=== PATIENT | male | born 1960 | race Caucasian/White ===

== ENCOUNTER 2017-08-01 12:35 | Emergency (ER) | payer BC ==
[2017-08-01 13:04] VITALS: O2SAT 98
[2017-08-01] MEDS ORDERED: Oxycodone/Acetaminophen 5/325 mg Tab PO STA (13:12)
--- NOTE | 2017-08-01 13:15 | ED PDOC ---
HPI: Back Time Seen by Provider: 08/01/17 12:55 Chief Complaint (Nursing): Back Pain Chief Complaint (Provider): Back Pain History Per: Patient Additional Complaint(s): 56 yo male, PMH of HTN and High Cholesterol, presents to Ed with complaint sof left sided lower back pain since Monday, radiating down RLE. No bowel or bladder dysfunction. Pt took 2 Motrin yesterday with mild relief. Past Medical History Reviewed: Historical Data, Nursing Documentation, Vital Signs Vital Signs: Last Vital Signs Temp 98.6 F 08/01/17 13:02 Pulse 94 H 08/01/17 13:02 Resp 16 08/01/17 13:02 BP 141/84 08/01/17 13:02 Pulse Ox 98 08/01/17 13:02 - Medical History PMH: HTN, Hyperlipidemia - Surgical History Surgical History: No Surg Hx - Family History Family History: States: No Known Family Hx - Living Arrangements Living Arrangements: With Family - Social History Current smoker - smoking cessation education provided: No Alcohol: Social Drugs: Denies - Home Medications Home Medications: Ambulatory Orders Medication Instructions Recorded Atorvastatin [Lipitor] 40 mg PO DAILY #30 tab 07/06/16 Cyclobenzaprine [Cyclobenzaprine 10 mg PO TID #20 tab 08/01/17 HCl] Ibuprofen [Motrin] 600 mg PO Q6 #20 tab 08/01/17 Lidocaine 1 each TP Q12 #12 adh..patch 08/01/17 oxyCODONE/Acetaminophen [Percocet 1 ea PO Q6 PRN #5 tab 08/01/17 5/325 mg Tab] - Allergies Allergies/Adverse Reactions: Allergies Allergy/AdvReac Type Severity Reaction Status Date / Time No Known Allergies Allergy Verified 07/06/16 11:03 Review of Systems ROS Statement: Except As Marked, All Systems Reviewed And Found Negative Musculoskeletal: Positive for: Back Pain Physical Exam - Reviewed Nursing Documentation Reviewed: Yes Vital Signs Reviewed: Yes - Physical Exam Appears: Positive for: Well, Non-toxic, No Acute Distress Head Exam: Positive for: ATRAUMATIC, NORMAL INSPECTION, NORMOCEPHALIC Skin: Positive for: Normal Color, Warm, DRY Eye Exam: Positive for: EOMI, Normal appearance, PERRL ENT: Positive for: Normal ENT Inspection Neck: Positive for: Normal, Painless ROM Cardiovascular/Chest: Positive for: Regular Rate, Rhythm Respiratory: Positive for: CNT, Normal Breath Sounds Gastrointestinal/Abdominal: Positive for: Normal Exam, Bowel Sounds, Soft Back: Positive for: Normal Inspection, Other (Left sided LS paraspinal tenderness) Extremity: Positive for: Normal ROM Neurologic/Psych: Positive for: Alert, Oriented - ECG O2 Sat by Pulse Oximetry: 98 Medical Decision Making Medical Decision Making: LS Spine; NAd, as read by HENNA Medicated with toradol, Flexeril and Percocet. Pt doing well on re-eval, able to ambulate with steady gait. stable for discharge at this time. Disposition - Clinical Impression Clinical Impression: Back pain - Patient ED Disposition Is Patient to be Admitted: No - Disposition Disposition: Routine/Home Disposition Time: 15:02 Condition: STABLE Prescriptions: Cyclobenzaprine [Cyclobenzaprine HCl] 10 mg PO TID #20 tab Ibuprofen [Motrin] 600 mg PO Q6 #20 tab Lidocaine 1 each TP Q12 #12 adh..patch oxyCODONE/Acetaminophen [Percocet 5/325 mg Tab] 1 ea PO Q6 PRN #5 tab PRN Reason: Pain, Severe (8-10) Instructions: Acute Low Back Pain (ED) Forms: [employer] (Spanish)
[2017-08-01] MEDS ORDERED: Oxycodone/Acetaminophen 5/325 mg Tab ONE (13:18)
--- NOTE | 2017-08-01 14:44 | RAD ---
PROCEDURE: Radiographs of the Lumbar Spine. HISTORY: Back Pain. No history of recent/ related trauma provided COMPARISON: No prior. FINDINGS: BONES: Normal alignment. No listhesis. No fracture. DISC SPACES: Preservation of intervertebral disc spaces. Non marginal osteophyte formation identified lower lumbar spine. OTHER FINDINGS: Calcified nonaneurysmal abdominal aorta. IMPRESSION: No significant or acute findings to account for/ related to the clinical presentation. Additional benign and/or incidental findings described above. Please note: No preliminary report/ innterpretation of this examination provided by emergency department personnel.
[2017-08-01 15:03] VITALS: BP 120/78; PULSE 78; RESP 19; TEMP 96.3
== END 2017-08-01 15:03 | disposition home or self-care (01) ==
LOC: H.ER 12:35
DX: M54.5 Low back pain (principal)
CPT/HCPCS: 72114; 96372; 99282; J1885

== ENCOUNTER 2017-12-24 14:01 | Observation (INO) | payer BC ==
[2017-12-24] MEDS ORDERED: Sodium Chloride 0.9% 500 ML IV STA (14:31)
--- NOTE | 2017-12-24 14:35 | ED PDOC ---
HPI: Chest Pain Time Seen by Provider: 12/24/17 14:21 Chief Complaint (Nursing): Chest Pain Chief Complaint (Provider): Chest pain History Per: Patient History/Exam Limitations: no limitations Onset/Duration Of Symptoms: Days Current Symptoms Are (Timing): Still Present Additional Complaint(s): Pt. with chest pain left side. Off and on and now more constant. No dyspnea, weakness, headaches. No nausea, vomit. Dizziness like light-headed mild. No cough. Sees a pattern generator operator Dr. Lopez. PCP Dr. Hendrix. No leg pain, long distance travel, or hormone tx. Past Medical History Reviewed: Nursing Documentation, Vital Signs Vital Signs: Last Vital Signs Temp 98.2 F 12/24/17 14:10 Pulse 96 H 12/24/17 14:10 Resp 20 12/24/17 14:10 BP 129/71 12/24/17 14:10 Pulse Ox 99 12/24/17 14:10 - Medical History PMH: HTN, Hyperlipidemia - Surgical History Surgical History: No Surg Hx - Family History Family History: States: Unknown Family Hx - Social History Current smoker - smoking cessation education provided: No Ex-Smoker (has not smoked in the last 12 months): Yes Alcohol: None Drugs: Denies - Home Medications Home Medications: Ambulatory Orders Medication Instructions Recorded Atorvastatin [Lipitor] 40 mg PO DAILY #30 tab 07/06/16 Cyclobenzaprine [Cyclobenzaprine 10 mg PO TID #20 tab 08/01/17 HCl] Ibuprofen [Motrin] 600 mg PO Q6 #20 tab 08/01/17 Lidocaine 1 each TP Q12 #12 adh..patch 08/01/17 oxyCODONE/Acetaminophen [Percocet 1 ea PO Q6 PRN #5 tab 08/01/17 5/325 mg Tab] - Allergies Allergies/Adverse Reactions: Allergies Allergy/AdvReac Type Severity Reaction Status Date / Time Latex, Natural Rubber Allergy SWELLING Verified 12/24/17 14:10 Review of Systems ROS Statement: Except As Marked, All Systems Reviewed And Found Negative Cardiovascular: Positive for: Chest Pain Neurological: Positive for: Dizziness Physical Exam - Reviewed Nursing Documentation Reviewed: Yes Vital Signs Reviewed: Yes - Physical Exam Appears: Positive for: Non-toxic, No Acute Distress Head Exam: Positive for: ATRAUMATIC, NORMAL INSPECTION, NORMOCEPHALIC Skin: Positive for: Normal Color, Warm, DRY Eye Exam: Positive for: EOMI, Normal appearance, PERRL ENT: Positive for: Normal ENT Inspection Neck: Positive for: Normal, Painless ROM Cardiovascular/Chest: Positive for: Regular Rate, Rhythm, Chest Non Tender. Negative for: Edema Respiratory: Positive for: CNT, Normal Breath Sounds Gastrointestinal/Abdominal: Positive for: Normal Exam, Bowel Sounds, Soft. Negative for: Tenderness Back: Positive for: Normal Inspection. Negative for: L CVA Tenderness, R CVA Tenderness Extremity: Positive for: Normal ROM. Negative for: Tenderness, Pedal Edema Neurologic/Psych: Positive for: Alert, Oriented - ECG ECG: Positive for: Interpreted By Me, Viewed By Me ECG Rhythm: Positive for: Normal QRS, Normal ST Segment, Sinus Rhythm O2 Sat by Pulse Oximetry: 99 Pulse Ox Interpretation: Normal - Progress ED Course And Treament: 1436: Stable. Dr. Posada to take over care. Fu on labs and imaging. Disposition - Clinical Impression Clinical Impression: Chest pain - Disposition Disposition Time: 14:36 Condition: STABLE Patient Signed Over To: Makenna Posada
--- NOTE | 2017-12-24 15:08 | ED PDOC ---
- Laboratory Results Result Diagrams: 12/24/17 15:22 12/24/17 15:22 - ECG O2 Sat by Pulse Oximetry: 99 (RA) Pulse Ox Interpretation: Normal Medical Decision Making Medical Decision Making: Time: --15:00 Reassess --Provider received endorsement from Dr. Fernandes pending ER workup, reassessment, and ER disposition 4p Labs and CXR unremarkable DW pt findings. Pt with anginal chest pain and cardiac risk factors. Pt to be hospitalized for serial enzymes to r/o ACS. DW Dr Diamond Hospitalist Scribe Attestation: Documented by Shawn Prasad acting as a scribe for Makenna Posada MD. Provider Attestation: All medical record entries made by the Scribe were at my direction and personally dictated by me. I have reviewed the chart and agree that the record accurately reflects my personal performance of the history, physical exam, medical decision making, and the department course for this patient. I have also personally directed, reviewed, and agree with the discharge instructions and disposition. Disposition Counseled Patient/Family Regarding: Studies Performed, Diagnosis - Clinical Impression Clinical Impression: Chest pain - POA Present On Arrival: None - Disposition Disposition: Hospitalized as Observation Patient Disposition Time: 16:00 Condition: STABLE Forms: Now In Store (Omani)
--- NOTE | 2017-12-24 15:29 | RAD ---
HISTORY: pain COMPARISON: Comparison chest dated 06/22/2012 FINDINGS: LUNGS: No active pulmonary disease. PLEURA: No significant pleural effusion identified, no pneumothorax apparent. CARDIOVASCULAR: Normal. OSSEOUS STRUCTURES: No significant abnormalities. VISUALIZED UPPER ABDOMEN: Normal. OTHER FINDINGS: None. IMPRESSION: No active disease.
[2017-12-24 15:36] LABS: BASO # 0.1 K/uL (0.0-0.2); BASO % 0.9 % (0.0-2.0); EOS # 0.1 K/uL (0.0-0.7); EOS % 1.2 % (0.0-4.0); HEMOGLOBIN 13.6 g/dL (12.0-18.0); LYMPH # 2.6 K/uL (1.0-4.3); LYMPH % 42.4 % (20.0-40.0); MEAN CELL VOLUME 91.3 fl (80.0-94.0); MEAN CORPUSCULAR HEMOGLOBIN 31.3 pg (27.0-31.0); MEAN CORPUSCULAR HGB CONC 34.3 g/dL (33.0-37.0); MEAN PLATELET VOLUME 7.9 fl (7.2-11.7); MONO # 0.4 K/uL (0.0-0.8); MONO % 6.7 % (0.0-10.0); NEUT % 48.8 % (50.0-75.0); NRBC % 0.1 % (0.0-0.0); RBC 4.35 Mil/uL (4.40-5.90); RED CELL DISTRIBUTION WIDTH 13.2 % (11.5-14.5); WHITE BLOOD COUNT 6.1 K/uL (4.8-10.8)
[2017-12-24 15:38] LABS: ALB/GLOB RATIO 1.3 (1.0-2.1); ALBUMIN 4.3 g/dL (3.5-5.0); ALT/SGPT 31 U/L (21-72); AST/SGOT 22 U/L (17-59); BLOOD UREA NITROGEN 15 mg/dl (9-20); CALCIUM 9.7 mg/dL (8.4-10.2); GFR AFRICAN-AMERICAN > 60; GFR NON-AFRICAN AMERICAN > 60
[2017-12-24 15:50] LABS: INR 1.1 (0.9-1.2); PROTHROMBIN TIME 11.7 Seconds (9.8-13.1)
[2017-12-24 15:51] LABS: PARTIAL THROMBOPLASTIN TIME 30.2 Seconds (25.6-37.1)
--- NOTE | 2017-12-24 16:55 | CP.PCM.HP ---
History of Present Illness - History of Present Illness History of Present Illness: 57 yo male with history of HTN and Anxiety DO came in because of on and off left and right chest pain since 2 days ago. Condition was associated with numbness of the left arm and left leg. Denied SOB, nausea or vomiting but admitted feeling frequently anxious. Present on Admission - Present on Admission Any Indicators Present on Admission: No History of DVT/PE: No History of Uncontrolled Diabetes: No Urinary Catheter: No Decubitus Ulcer Present: No Review of Systems - Review of Systems All systems: reviewed and no additional remarkable complaints except (aside from those mentioned above, 14 point system review were negative by me) Past Patient History - Infectious Disease Hx of Infectious Diseases: None - Tetanus Immunizations Tetanus Immunization: Unknown - Past Medical History & Family History Past Medical History?: No Pertinent Family History: mother had DM2 and HTN father with history of Parkinson's Disease - Past Social History Smoking Status: Never Smoked Alcohol: None Drugs: Denies - CARDIAC Hx Hypertension: Yes - PULMONARY Hx Respiratory Disorders: No - NEUROLOGICAL Hx Neurological Disorder: No - HEENT Hx HEENT Problems: No - RENAL Hx Chronic Kidney Disease: No - ENDOCRINE/METABOLIC Hx Endocrine Disorders: No - HEMATOLOGICAL/ONCOLOGICAL Hx Blood Disorders: No - INTEGUMENTARY Hx Dermatological Problems: No - MUSCULOSKELETAL/RHEUMATOLOGICAL Hx Musculoskeletal Disorders: No - GASTROINTESTINAL Hx Gastrointestinal Disorders: No - GENITOURINARY/GYNECOLOGICAL Hx Genitourinary Disorders: No - PSYCHIATRIC Hx Anxiety: Yes Hx Substance Use: No - SURGICAL HISTORY Hx Surgeries: No - ANESTHESIA Hx Anesthesia: No Meds Allergies/Adverse Reactions: Allergies Allergy/AdvReac Type Severity Reaction Status Date / Time Latex, Natural Rubber Allergy SWELLING Verified 12/24/17 14:10 Physical Exam - Constitutional Appears: No Acute Distress - Head Exam Head Exam: ATRAUMATIC - Eye Exam Eye Exam: absent: Scleral icterus - ENT Exam ENT Exam: Mucous Membranes Moist - Neck Exam Neck exam: Negative for: Meningismus - Respiratory Exam Respiratory Exam: absent: Chest Wall Tenderness, Rhonchi, Wheezes, Respiratory Distress - Cardiovascular Exam Cardiovascular Exam: REGULAR RHYTHM, +S1, +S2 - GI/Abdominal Exam GI & Abdominal Exam: Soft. absent: Tenderness - Rectal Exam Rectal Exam: Deferred - Extremities Exam Extremities exam: Negative for: calf tenderness, pedal edema - Back Exam Back exam: absent: tenderness - Neurological Exam Neurological exam: Alert, Oriented x3 - Psychiatric Exam Psychiatric exam: Anxious - Skin Skin Exam: Dry, Intact Results - Vital Signs Recent Vital Signs: Last Vital Signs Temp 98.2 F 12/24/17 14:10 Pulse 96 H 12/24/17 14:10 Resp 20 12/24/17 14:10 BP 129/71 12/24/17 14:10 Pulse Ox 99 12/24/17 16:31 - Labs Result Diagrams: 12/24/17 15:22 12/24/17 15:22 Labs: Laboratory Results - last 24 hr 12/24/17 12/24/17 12/24/17 15:22 15:22 15:22 WBC 6.1 RBC 4.35 L Hgb 13.6 Hct 39.7 MCV 91.3 MCH 31.3 H MCHC 34.3 RDW 13.2 Plt Count 194 MPV 7.9 Neut % (Auto) 48.8 L Lymph % (Auto) 42.4 H [place] % (Auto) 6.7 Eos % (Auto) 1.2 Baso % (Auto) 0.9 Neut # (Auto) 3.0 Lymph # (Auto) 2.6 [place] # (Auto) 0.4 Eos # (Auto) 0.1 Baso # (Auto) 0.1 PT 11.7 INR 1.1 APTT 30.2 Sodium 139 Potassium 4.4 Chloride 101 Carbon Dioxide 28 Anion Gap 14 BUN 15 Creatinine 0.9 Est GFR ( Amer) > 60 Est GFR (Non-Af Amer) > 60 Random Glucose 98 Calcium 9.7 Total Bilirubin 0.8 AST 22 ALT 31 Alkaline Phosphatase 51 Troponin I < 0.0120 Total Protein 7.7 Albumin 4.3 Globulin 3.3 Albumin/Globulin Ratio 1.3 Assessment & Plan - Assessment and Plan (Free Text) Assessment: 57 yo male with history of HTN and Anxiety DO came in because of on and off left and right chest pain since 2 days ago. Condition was associated with numbness of the left arm and left leg. Denied SOB, nausea or vomiting but admitted feeling frequently anxious. 1. Chest Pain presently pain free ASA serial Troponin and EKG 2. Anxiety on Xanax 0.25mg PO prn Paxil 10mg PO q am 3. HTN BP controlled HCTZ 25mg PO q am
[2017-12-25 05:37] LABS: BASO % 0.5 % (0.0-2.0); EOS # 0.2 K/uL (0.0-0.7); EOS % 2.6 % (0.0-4.0); HEMOGLOBIN 12.7 g/dL (12.0-18.0); LYMPH # 2.9 K/uL (1.0-4.3); LYMPH % 48.5 % (20.0-40.0); MEAN CORPUSCULAR HEMOGLOBIN 31.3 pg (27.0-31.0); MEAN CORPUSCULAR HGB CONC 34.4 g/dL (33.0-37.0); MEAN PLATELET VOLUME 8.1 fl (7.2-11.7); MONO # 0.5 K/uL (0.0-0.8); MONO % 9.1 % (0.0-10.0); NEUT # 2.3 K/uL (1.8-7.0); NEUT % 39.3 % (50.0-75.0); NRBC % 0.1 % (0.0-0.0); RBC 4.07 Mil/uL (4.40-5.90); WHITE BLOOD COUNT 5.9 K/uL (4.8-10.8)
[2017-12-25 05:47] LABS: BLOOD UREA NITROGEN 14 mg/dl (9-20); CALCIUM 9.5 mg/dL (8.4-10.2); GFR AFRICAN-AMERICAN > 60; GFR NON-AFRICAN AMERICAN > 60; HDL CHOLESTEROL 37 MG/DL (30-70)
[2017-12-25 05:57] LABS: LDL CHOLESTEROL 90 mg/dL (0-129)
[2017-12-25 08:20] VITALS: BP 133/80; PULSE 68; RESP 20; TEMP 98.4; O2SAT 98
[2017-12-25] MEDS ORDERED: Pantoprazole 40 mg EC Tab PO SCH (09:00)
[2017-12-25] MEDS ORDERED: Enoxaparin 40 mg Syringe SC SCH (09:00)
--- NOTE | 2017-12-25 10:16 | CP.PCM.DIS ---
Provider - Provider Date of Admission: 12/24/17 16:14 Attending physician: Robert Diamond MD Primary care physician: Provider TBD Time Spent in preparation of Discharge (in minutes): 25 Diagnosis - Discharge Diagnosis (1) Chest pain Status: Acute Comment: 3 sets of Troponins and EKG were negative for ischemic events (2) HTN (hypertension) Status: Chronic Comment: continue HCTZ 25mg PO daily. DC Amlodipine and Hydralazine. Monitor BP at home (3) Anxiety Status: Chronic Comment: Paxil 10mg PO q am Hospital Course - Lab Results Lab Results: Most Recent Lab Values WBC 5.9 K/uL (4.8-10.8) 12/25/17 04:30 RBC 4.07 Mil/uL (4.40-5.90) L 12/25/17 04:30 Hgb 12.7 g/dL (12.0-18.0) 12/25/17 04:30 Hct 37.0 % (35.0-51.0) 12/25/17 04:30 MCV 91.0 fl (80.0-94.0) 12/25/17 04:30 MCH 31.3 pg (27.0-31.0) H 12/25/17 04:30 MCHC 34.4 g/dL (33.0-37.0) 12/25/17 04:30 RDW 13.0 % (11.5-14.5) 12/25/17 04:30 Plt Count 185 K/uL (130-400) 12/25/17 04:30 MPV 8.1 fl (7.2-11.7) 12/25/17 04:30 Neut % (Auto) 39.3 % (50.0-75.0) L 12/25/17 04:30 Lymph % (Auto) 48.5 % (20.0-40.0) H 12/25/17 04:30 [place] % (Auto) 9.1 % (0.0-10.0) 12/25/17 04:30 Eos % (Auto) 2.6 % (0.0-4.0) 12/25/17 04:30 Baso % (Auto) 0.5 % (0.0-2.0) 12/25/17 04:30 Neut # (Auto) 2.3 K/uL (1.8-7.0) 12/25/17 04:30 Lymph # (Auto) 2.9 K/uL (1.0-4.3) 12/25/17 04:30 [place] # (Auto) 0.5 K/uL (0.0-0.8) 12/25/17 04:30 Eos # (Auto) 0.2 K/uL (0.0-0.7) 12/25/17 04:30 Baso # (Auto) 0.0 K/uL (0.0-0.2) 12/25/17 04:30 PT 11.7 Seconds (9.8-13.1) 12/24/17 15:22 INR 1.1 (0.9-1.2) 12/24/17 15:22 APTT 30.2 Seconds (25.6-37.1) 12/24/17 15:22 Sodium 144 mmol/l (132-148) 12/25/17 04:30 Potassium 4.9 MMOL/L (3.6-5.0) 12/25/17 04:30 Chloride 102 mmol/L (98-107) 12/25/17 04:30 Carbon Dioxide 31 mmol/L (22-30) H 12/25/17 04:30 Anion Gap 16 (10-20) 12/25/17 04:30 BUN 14 mg/dl (9-20) 12/25/17 04:30 Creatinine 1.0 mg/dl (0.8-1.5) 12/25/17 04:30 Est GFR ( Amer) > 60 12/25/17 04:30 Est GFR (Non-Af Amer) > 60 12/25/17 04:30 Random Glucose 86 mg/dL (75-110) 12/25/17 04:30 Calcium 9.5 mg/dL (8.4-10.2) 12/25/17 04:30 Total Bilirubin 0.8 mg/dl (0.2-1.3) 12/24/17 15:22 AST 22 U/L (17-59) 12/24/17 15:22 ALT 31 U/L (21-72) 12/24/17 15:22 Alkaline Phosphatase 51 U/L (38-126) 12/24/17 15:22 Troponin I < 0.0120 ng/mL (0.00-0.120) 12/25/17 05:10 Total Protein 7.7 G/DL (6.3-8.2) 12/24/17 15:22 Albumin 4.3 g/dL (3.5-5.0) 12/24/17 15:22 Globulin 3.3 gm/dL (2.2-3.9) 12/24/17 15:22 Albumin/Globulin Ratio 1.3 (1.0-2.1) 12/24/17 15:22 Triglycerides 80 mg/DL (0-149) 12/25/17 04:30 Cholesterol 150 mg/dL (0-199) 12/25/17 04:30 LDL Cholesterol Direct 90 mg/dL (0-129) 12/25/17 04:30 HDL Cholesterol 37 MG/DL (30-70) 12/25/17 04:30 - Hospital Course Hospital Course: 57 yo male with history of HTN and Anxiety DO came in because of on and off left and right chest pain since 2 days ago. Condition was associated with numbness of the left arm and left leg. Denied SOB, nausea or vomiting but admitted feeling frequently anxious. Patient was placed on observation in telemetry and monitored. There was no recurrence of chest pain and his serial Troponins were negative for ischemic events. BP management was also adjusted and was controlled with just HCTZ 25mg PO daily. Patient was discharged in stable condition. Discharge Exam - Head Exam Head Exam: ATRAUMATIC - Eye Exam Eye Exam: absent: Scleral icterus - ENT Exam ENT Exam: Mucous Membranes Moist - Respiratory Exam Respiratory Exam: NORMAL BREATHING PATTERN. absent: Wheezes, Respiratory Distress - Cardiovascular Exam Cardiovascular Exam: REGULAR RHYTHM, +S1, +S2 - GI/Abdominal Exam GI & Abdominal Exam: Soft. absent: Tenderness - Rectal Exam Rectal Exam: Deferred - Back Exam Back exam: absent: tenderness - Neurological Exam Neurological exam: Alert, Oriented x3 - Psychiatric Exam Psychiatric exam: Normal Affect - Skin Skin Exam: Dry, Intact Discharge Plan - Discharge Medications Prescriptions: ALPRAZolam [Xanax] 0.25 mg PO BID PRN #30 tab PRN Reason: Anxiety hydroCHLOROthiazide [Microzide] 25 mg PO DAILY #30 cap PARoxetine [Paxil] 10 mg PO DAILY #30 tab - Follow Up Plan Condition: STABLE Disposition: HOME/ ROUTINE Instructions: Chest Pain That Is Not Caused by the Heart (DC)
--- NOTE | 2017-12-25 12:10 | CARD ---
APPROVED REPORT EKG Measurement Heart [id number] <Conclusion> Normal sinus rhythm Normal ECG
== END 2017-12-25 10:30 | disposition home or self-care (01) ==
LOC: H.ER 14:01 → SUPCPDRO 14:01 → H.ERHOLD 16:14 → H.TEL 18:31
DX: R07.89 Other chest pain (principal); F41.9 Anxiety disorder, unspecified; I10 Essential (primary) hypertension; E78.5 Hyperlipidemia, unspecified; R42 Dizziness and giddiness; Z87.891 Personal history of nicotine dependence; Z91.040 Latex allergy status; Z82.49 Family history of ischemic heart disease and other diseases of the circulatory system
CPT/HCPCS: 36415; 71045; 80048; 80053; 80061; 84484; 85025; 85610; 85730; 93005; 99285; G0378; J7040